=== PATIENT | male | born 1970 | race Caucasian/White ===

== ENCOUNTER 2016-08-10 21:46 | Emergency (ER) | payer OTHER | END 2016-08-11 03:48 | disposition short-term general hospital (02) | LOC: ER 21:46 | DX: K80.00 Calculus of gallbladder with acute cholecystitis without obstruction (principal); I10 Essential (primary) hypertension; Z79.899 Other long term (current) drug therapy | CPT/HCPCS: 36415; 96365; 96375; 96376; Q9967 ==